=== PATIENT | female | born 1995 | race Hispanic/Latino ===

== ENCOUNTER 2023-06-14 10:57 | Day surgery (SDC) | payer OTHER ==
[2023-06-14 11:33] VITALS: BMI 35.9
== END 2023-06-14 12:49 | disposition home or self-care (01) ==
LOC: CSHLD/OP 10:57
PROVIDERS: ATTEND Obstetrics & Gynecology
DX: O36.8120 Decreased fetal movements, second trimester, not applicable or unspecified (principal); O99.282 Endocrine, nutritional and metabolic diseases complicating pregnancy, second trimester; E03.9 Hypothyroidism, unspecified; O34.211 Maternal care for low transverse scar from previous cesarean delivery; Z98.51 Tubal ligation status; Z88.2 Allergy status to sulfonamides; Z3A.26 26 weeks gestation of pregnancy